=== PATIENT | male | born 1965 | race Caucasian/White ===

== ENCOUNTER 2022-01-13 14:02 | Inpatient (IN) | payer BC, OTHER ==
[2022-01-13] MEDS ORDERED: ACETAMINOPHEN 325 MG TABLET (FP) PO PRN ×2 (14:59)
[2022-01-13] MEDS ORDERED: MAG HYDROX/AL HYDROX/SIMETH 30 ML UNIT-DOSE CUP PO PRN (14:59)
[2022-01-13] MEDS ORDERED: MAGNESIUM CITRATE 300 ML BOTTLE PO PRN (14:59)
[2022-01-13] MEDS ORDERED: IBUPROFEN 400 MG TABLET (FP) PO PRN (14:59)
[2022-01-13] MEDS ORDERED: MAGNESIUM HYDROX 2400MG/30ML ORAL SUSPENSION 30 ML CUP PO PRN (14:59)
[2022-01-13] MEDS ORDERED: LOPERAMIDE HCL 2 MG CAPSULE PO PRN (14:59)
[2022-01-13] MEDS ORDERED: ONDANSETRON *ODT* 4 MG TABLET SL PRN (14:59)
[2022-01-13] MEDS ORDERED: MENTHOL/PHENOL 1 EACH UD MM PRN (14:59)
[2022-01-13] MEDS ORDERED: BISMUTH SUBSALICYLATE 524 MG/30 ML PO PRN (14:59)
[2022-01-13] MEDS ORDERED: chlordiazePOXIDE HCL 25 MG CAPSULE PO PRN (14:59)
[2022-01-13] MEDS ORDERED: NICOTINE 10 MG CARTRIDGE (INHALER) IH PRN (14:59)
[2022-01-13 15:44] VITALS: BMI 30.9
[2022-01-13] MEDS ORDERED: LORazepam 2 MG/ML SDV VIAL IM STA (17:30)
[2022-01-13] MEDS ORDERED: TRIMETHOBENZAMIDE HCL 200MG/2ML INJ IM ONE ×2 (17:32→17:40)
[2022-01-13] MEDS: hydrOXYzine PAMOATE 25 MG CAPSULE (FP) PO SCH ×2 (19:54→22:37)
[2022-01-13] MEDS: chlordiazePOXIDE HCL 25 MG CAPSULE PO SCH ×2 (19:57→22:37)
[2022-01-13] MEDS: ATORVASTATIN CA 40 MG TABLET (FP) PO SCH (22:37)
[2022-01-13] MEDS: MELATONIN 5 MG TABLETS PO SCH (22:37)
[2022-01-13] MEDS: THIAMINE HCL 100 MG TABLET (FP) PO SCH (22:37)
[2022-01-14] MEDS: chlordiazePOXIDE HCL 25 MG CAPSULE PO SCH ×4 (05:38→22:28)
[2022-01-14] MEDS: hydrOXYzine PAMOATE 25 MG CAPSULE (FP) PO SCH ×5 (05:38→22:29)
[2022-01-14] MEDS: metFORMIN HCL 500 MG TABLET (FP) PO SCH (07:13)
[2022-01-14] MEDS: LISINOPRIL 20 MG TABLET PO SCH (10:56)
[2022-01-14] MEDS: METHOCARBAMOL 500 MG TABLET PO PRN (10:56)
[2022-01-14] MEDS: METOPROLOL TARTRATE 50 MG TABLET (FP) PO SCH (10:56)
[2022-01-14] MEDS: PRENATAL VITAMINS W/ FOLIC ACID TABLET (FP) PO SCH (10:58)
[2022-01-14 11:07] LABS: HEMATOCRIT 28.1 % (35.4-49); MCH 23.8 pg (25.7-33.7); MEAN CELL VOLUME 74.2 fl (80-96); MEAN PLT VOLUME 8.1 fl (7.5-11.1); PLATELET COUNT 46 10^3/uL (134-434); RBC 3.78 M/mm3 (4.00-5.60); RDW 21.7 % (11.9-15.9); WHITE BLOOD COUNT 2.7 K/mm3 (4.0-10.0)
[2022-01-14 11:38] LABS: ALBUMIN 3.3 g/dl (3.4-5.0); BILIRUBIN,TOTAL 1.2 mg/dL (0.2-1); BLOOD UREA NITROGEN 14.2 mg/dL (7-18); CALCIUM 8.6 mg/dL (8.5-10.1); CREATININE 0.6 mg/dL (0.55-1.3); TOT PROT 7.4 g/dl (6.4-8.2)
[2022-01-14] MEDS ORDERED: PNEUMOC 13-VAL CONJ-DIP CRM/PF 0.5 ML DISP.SYRIN IM ONE (12:00)
[2022-01-14] MEDS ORDERED: FLU VACC QS2021-22(6MOS UP)/PF 60 MCG/0.5 ML SYRINGE IM ONE (12:00)
[2022-01-14] MEDS ORDERED: PNEUMOCOCCAL 23 VACCINE 0.5 ML VIAL IM ONE (12:00)
[2022-01-14] MEDS: THIAMINE HCL 100 MG TABLET (FP) PO SCH (22:28)
[2022-01-14] MEDS: ATORVASTATIN CA 40 MG TABLET (FP) PO SCH (22:28)
[2022-01-14] MEDS: MELATONIN 5 MG TABLETS PO SCH (22:29)
[2022-01-15] MEDS: hydrOXYzine PAMOATE 25 MG CAPSULE (FP) PO SCH ×5 (05:07→22:17)
[2022-01-15] MEDS: chlordiazePOXIDE HCL 25 MG CAPSULE PO SCH ×4 (05:08→22:16)
[2022-01-15] MEDS: metFORMIN HCL 500 MG TABLET (FP) PO SCH (06:49)
[2022-01-15 07:07] LABS: SARS-CoV-2 NAA Not Detected (Not Detected)
[2022-01-15 10:55] LABS: HEMATOCRIT 27.7 % (35.4-49); HEMOGLOBIN 8.9 GM/dL (11.7-16.9); MCHC 32.1 g/dl (32.0-35.9); MEAN CELL VOLUME 74.9 fl (80-96); MEAN PLT VOLUME 7.9 fl (7.5-11.1); PLATELET COUNT 40 10^3/uL (134-434); RDW 22.2 % (11.9-15.9); RETICULOCYTES 2.76 % (0.5-1.5); WHITE BLOOD COUNT 2.7 K/mm3 (4.0-10.0)
[2022-01-15] MEDS: PRENATAL VITAMINS W/ FOLIC ACID TABLET (FP) PO SCH (10:56)
[2022-01-15] MEDS: LISINOPRIL 20 MG TABLET PO SCH (10:56)
[2022-01-15] MEDS: METOPROLOL TARTRATE 50 MG TABLET (FP) PO SCH (10:56)
[2022-01-15 11:25] LABS: ALBUMIN 3.1 g/dl (3.4-5.0); CALCIUM 8.7 mg/dL (8.5-10.1)
[2022-01-15 11:28] LABS: CREATININE 0.8 mg/dL (0.55-1.3)
[2022-01-15 11:29] LABS: TOT PROT 7.2 g/dl (6.4-8.2)
[2022-01-15] MEDS: FERROUS SO4 325 MG TABLET (FP) PO SCH ×2 (13:22→16:51)
[2022-01-15] MEDS: FLUTICASONE PROP 0.05% 16 GM NASAL SPRAY NS SCH ×2 (15:35→22:17)
[2022-01-15] MEDS ORDERED: BENZOCAINE 28 GM HEMORRHOIDAL OINTMENT PR PRN (19:12)
[2022-01-15] MEDS: ATORVASTATIN CA 40 MG TABLET (FP) PO SCH (22:16)
[2022-01-15] MEDS: THIAMINE HCL 100 MG TABLET (FP) PO SCH (22:16)
[2022-01-15] MEDS: MELATONIN 5 MG TABLETS PO SCH (22:17)
[2022-01-16] MEDS ORDERED: chlordiazePOXIDE HCL 10 MG CAPSULE PO PRN
[2022-01-16] MEDS: chlordiazePOXIDE HCL 10 MG CAPSULE PO SCH ×4 (05:26→23:02)
[2022-01-16] MEDS: hydrOXYzine PAMOATE 25 MG CAPSULE (FP) PO SCH ×5 (05:27→23:02)
[2022-01-16] MEDS: metFORMIN HCL 500 MG TABLET (FP) PO SCH (08:22)
[2022-01-16] MEDS: FERROUS SO4 325 MG TABLET (FP) PO SCH ×3 (08:23→19:05)
[2022-01-16] MEDS: FLUTICASONE PROP 0.05% 16 GM NASAL SPRAY NS SCH ×2 (10:13→23:03)
[2022-01-16] MEDS: LISINOPRIL 20 MG TABLET PO SCH (10:14)
[2022-01-16] MEDS: METHOCARBAMOL 500 MG TABLET PO PRN (10:14)
[2022-01-16] MEDS: METOPROLOL TARTRATE 50 MG TABLET (FP) PO SCH (10:14)
[2022-01-16] MEDS: PRENATAL VITAMINS W/ FOLIC ACID TABLET (FP) PO SCH (10:16)
[2022-01-16 12:17] LABS: BASO % 0.4 % (0-2.0); EOS % 7.9 % (0-4.5); HEMATOCRIT 30.7 % (35.4-49); HEMOGLOBIN 9.9 GM/dL (11.7-16.9); LYMPH % 36.2 % (8-40); MCH 24.2 pg (25.7-33.7); MCHC 32.2 g/dl (32.0-35.9); MEAN PLT VOLUME 8.3 fl (7.5-11.1); MONO % 6.8 % (3.8-10.2); NEUT % 48.7 % (42.8-82.8); PLATELET COUNT 47 10^3/uL (134-434); RBC 4.09 M/mm3 (4.00-5.60); WHITE BLOOD COUNT 3.8 K/mm3 (4.0-10.0)
[2022-01-16 14:28] LABS: ANISOCYTOSIS 2+; MACROCYTOSIS 0; OVALOCYTE 2+; SICKELED CELLS 2+; TARGET CELLS 2+; TEAR DROP CELLS 1+
[2022-01-16] MEDS: MELATONIN 5 MG TABLETS PO SCH (23:01)
[2022-01-16] MEDS: THIAMINE HCL 100 MG TABLET (FP) PO SCH (23:02)
[2022-01-16] MEDS: ATORVASTATIN CA 40 MG TABLET (FP) PO SCH (23:02)
[2022-01-17] MEDS: hydrOXYzine PAMOATE 25 MG CAPSULE (FP) PO SCH ×5 (05:18→22:33)
[2022-01-17] MEDS: chlordiazePOXIDE HCL 10 MG CAPSULE PO SCH ×2 (05:18→17:29)
[2022-01-17] MEDS: metFORMIN HCL 500 MG TABLET (FP) PO SCH (06:17)
[2022-01-17] MEDS: FERROUS SO4 325 MG TABLET (FP) PO SCH ×3 (07:14→17:29)
[2022-01-17] MEDS: PRENATAL VITAMINS W/ FOLIC ACID TABLET (FP) PO SCH (10:23)
[2022-01-17] MEDS: FLUTICASONE PROP 0.05% 16 GM NASAL SPRAY NS SCH ×2 (10:23→22:33)
[2022-01-17] MEDS: LISINOPRIL 20 MG TABLET PO SCH (10:23)
[2022-01-17] MEDS: METOPROLOL TARTRATE 50 MG TABLET (FP) PO SCH (10:23)
[2022-01-17 13:30] LABS: HIV INTERPRETATION NEGATIVE (NEGATIVE)
[2022-01-17] MEDS ORDERED: POTASSIUM CHLORIDE ORAL LIQUID 20 MEQ/15 ML PO ONE ×2 (14:31→22:00)
[2022-01-17] MEDS: MELATONIN 5 MG TABLETS PO SCH (22:33)
[2022-01-17] MEDS: THIAMINE HCL 100 MG TABLET (FP) PO SCH (22:33)
[2022-01-17] MEDS: ATORVASTATIN CA 40 MG TABLET (FP) PO SCH (22:33)
[2022-01-18] MEDS ORDERED: chlordiazePOXIDE HCL 10 MG CAPSULE PO ONE (05:00)
[2022-01-18] MEDS: hydrOXYzine PAMOATE 25 MG CAPSULE (FP) PO SCH ×5 (05:23→22:22)
[2022-01-18] MEDS: metFORMIN HCL 500 MG TABLET (FP) PO SCH (06:57)
[2022-01-18] MEDS: FERROUS SO4 325 MG TABLET (FP) PO SCH ×3 (07:18→16:50)
[2022-01-18] MEDS: LISINOPRIL 20 MG TABLET PO SCH (10:06)
[2022-01-18] MEDS: METOPROLOL TARTRATE 50 MG TABLET (FP) PO SCH (10:06)
[2022-01-18] MEDS: PRENATAL VITAMINS W/ FOLIC ACID TABLET (FP) PO SCH (10:06)
[2022-01-18] MEDS: FLUTICASONE PROP 0.05% 16 GM NASAL SPRAY NS SCH ×2 (10:07→22:22)
[2022-01-18] MEDS: ATORVASTATIN CA 40 MG TABLET (FP) PO SCH (22:22)
[2022-01-18] MEDS: THIAMINE HCL 100 MG TABLET (FP) PO SCH (22:22)
[2022-01-18] MEDS: MELATONIN 5 MG TABLETS PO SCH (22:23)
[2022-01-19] MEDS: hydrOXYzine PAMOATE 25 MG CAPSULE (FP) PO SCH ×2 (05:30→09:13)
[2022-01-19] MEDS ORDERED: INSULIN SLIDING SCALE (NOVOLOG) 1 VIAL SQ SCH (07:00)
[2022-01-19 07:08] VITALS: BP 115/74
[2022-01-19] MEDS: metFORMIN HCL 500 MG TABLET (FP) PO SCH (07:28)
[2022-01-19] MEDS: FERROUS SO4 325 MG TABLET (FP) PO SCH (07:28)
[2022-01-19] MEDS: FLUTICASONE PROP 0.05% 16 GM NASAL SPRAY NS SCH (09:13)
[2022-01-19] MEDS: LISINOPRIL 20 MG TABLET PO SCH (09:13)
[2022-01-19] MEDS: PRENATAL VITAMINS W/ FOLIC ACID TABLET (FP) PO SCH (09:13)
[2022-01-19] MEDS: METOPROLOL TARTRATE 50 MG TABLET (FP) PO SCH (09:13)
[2022-01-19 09:53] VITALS: PULSE 85; TEMP 97.3
[2022-01-19 13:38] LABS: ALBUMIN 3.4 g/dl (3.4-5.0); CALCIUM 8.9 mg/dL (8.5-10.1)
[2022-01-19 13:39] LABS: BLOOD UREA NITROGEN 13.2 mg/dL (7-18)
[2022-01-19 13:41] LABS: CREATININE 0.8 mg/dL (0.55-1.3)
[2022-01-19 13:43] LABS: BILIRUBIN,TOTAL 0.6 mg/dL (0.2-1); TOT PROT 7.9 g/dl (6.4-8.2)
== END 2022-01-19 10:13 | disposition other institution (70) | DRG 897 ==
LOC: YASAS 14:02 → Y6N 18:44
PROVIDERS: ADMIT Allergy & Immunology; ATTEND Allergy & Immunology
PROC: HZ2ZZZZ Detoxification Services for Substance Abuse Treatment (ICD-10-PCS; principal; 2022-01-13)
DX: F10.230 Alcohol dependence with withdrawal, uncomplicated (principal); D61.818 Other pancytopenia; F10.282 Alcohol dependence with alcohol-induced sleep disorder; F10.24 Alcohol dependence with alcohol-induced mood disorder; D50.9 Iron deficiency anemia, unspecified; E87.6 Hypokalemia; E11.9 Type 2 diabetes mellitus without complications; Z79.84 Long term (current) use of oral hypoglycemic drugs; I10 Essential (primary) hypertension; E78.5 Hyperlipidemia, unspecified; K21.9 Gastro-esophageal reflux disease without esophagitis; R74.01 Elevation of levels of liver transaminase levels; R74.8 Abnormal levels of other serum enzymes; R76.11 Nonspecific reaction to tuberculin skin test without active tuberculosis; I25.2 Old myocardial infarction
CPT/HCPCS: 36415; 71046-TC-FY; 80053; 82607; 82746; 82962; 83036; 83540; 83550; 85025; 85027; 85045; 86780; 87389; 93005; 93010; C9803-CS; Q0162; U0003; U0005

== ENCOUNTER 2025-03-12 21:42 | Inpatient (IN) | payer BC, OTHER ==
[2025-03-12 22:10] VITALS: BMI 31.6
[2025-03-12] MEDS ORDERED: guaiFENesin 600 MG TABLET.ER (FP) PO PRN (22:24)
[2025-03-12] MEDS ORDERED: LOPERAMIDE HCL 2 MG CAPSULE PO PRN (22:24)
[2025-03-12] MEDS ORDERED: IBUPROFEN 600 MG TABLET (FP) PO PRN (22:24)
[2025-03-12] MEDS ORDERED: BISMUTH SUBSALICYLATE 524 MG/30 ML PO PRN (22:24)
[2025-03-12] MEDS ORDERED: NALOXONE (NARCAN) HCL 4 MG/0.1 ML SPRAY NS PRN (22:24)
[2025-03-12] MEDS ORDERED: MAG HYDROX/AL HYDROX/SIMETH 30 ML UNIT-DOSE CUP PO PRN (22:24)
[2025-03-12] MEDS ORDERED: DICYCLOMINE HCL 10 MG CAPSULE PO PRN (22:24)
[2025-03-12] MEDS ORDERED: BENZOCAINE/MENTHOL (CHLORASEPTIC ) LOZENGE MM PRN (22:24)
[2025-03-12] MEDS ORDERED: POLYETHYLENE GLYCOL (HEALTHYLAX) 3350 17 GM PACKET PO PRN (22:24)
[2025-03-12] MEDS ORDERED: MAGNESIUM HYDROX 2400MG/30ML ORAL SUSPENSION 30 ML CUP PO PRN (22:24)
[2025-03-12] MEDS ORDERED: ONDANSETRON *ODT* 4 MG TABLET SL PRN (22:24)
[2025-03-12] MEDS ORDERED: ACETAMINOPHEN 325 MG TABLET (FP) PO PRN (22:24)
[2025-03-12] MEDS ORDERED: IBUPROFEN 400 MG TABLET (FP) PO PRN (22:24)
[2025-03-12] MEDS ORDERED: BENZONATATE 200 MG CAPSULE PO PRN (22:24)
[2025-03-12] MEDS ORDERED: chlordiazePOXIDE HCL 25 MG CAPSULE PO PRN (22:26)
[2025-03-12] MEDS ORDERED: levETIRAcetam 500 MG TABLET (FP) PO ONE (23:33)
[2025-03-12] MEDS ORDERED: propRANOLol HCL 10 MG TABLET ONE (23:33)
[2025-03-12] MEDS ORDERED: chlordiazePOXIDE HCL 25 MG CAPSULE ONE (23:33)
[2025-03-12] MEDS: propRANOLol HCL 10 MG TABLET PO ONE (23:42)
[2025-03-12] MEDS: levETIRAcetam 500 MG TABLET (FP) PO SCH (23:42)
[2025-03-12] MEDS: chlordiazePOXIDE HCL 25 MG CAPSULE PO SCH (23:43)
[2025-03-13] MEDS: PRENATAL VITAMINS W/ FOLIC ACID TABLET (FP) PO SCH (10:14)
[2025-03-13] MEDS: FLU VACCINE (FLULAVAL) PF 45 MCG/0.5 ML SYRINGE 2024-2025 IM ONE (12:55)
[2025-03-13 15:03] LABS: HEMATOCRIT 26.2 % (40.1-51.0)
[2025-03-13 15:05] LABS: HEMOGLOBIN 7.9 g/dL (13.7-17.5); MCHC 30.2 g/dl (32.3-36.5); MEAN CELL VOLUME 83.4 fl (79.0-92.2); MEAN PLT VOLUME 9.8 fl (9.4-12.4); RDW 20.5 % (12.2-16.1)
[2025-03-13 15:14] LABS: POTASSIUM 3.8 mmol/L (3.5-5.1)
[2025-03-13 15:20] LABS: PLATELET COUNT 23 x10^3/uL (163-337)
[2025-03-13 15:41] LABS: CALCIUM 8.2 mg/dL (8.5-10.1)
[2025-03-13 15:43] LABS: ALBUMIN 2.4 g/dl (3.4-5.0); BLOOD UREA NITROGEN 9.4 mg/dL (7-18)
[2025-03-13 15:45] LABS: CREATININE 0.9 mg/dL (0.55-1.3)
[2025-03-13 15:47] LABS: BILIRUBIN,TOTAL 1.4 mg/dL (0.2-1); TOT PROT 7.5 g/dl (6.4-8.2)
[2025-03-13] MEDS: MELATONIN 5 MG TABLETS PO SCH (22:07)
[2025-03-13] MEDS: THIAMINE 100 MG TABLET PO SCH (22:07)
[2025-03-14] MEDS: chlordiazePOXIDE HCL 25 MG CAPSULE PO SCH (05:55)
[2025-03-14 11:28] LABS: HEMATOCRIT 27.5 % (40.1-51.0); HEMOGLOBIN 8.5 g/dL (13.7-17.5); MCHC 30.9 g/dl (32.3-36.5); MEAN CELL VOLUME 83.3 fl (79.0-92.2); MEAN PLT VOLUME 8.9 fl (9.4-12.4); PLATELET COUNT 29 x10^3/uL (163-337)
[2025-03-15] MEDS ORDERED: chlordiazePOXIDE HCL 10 MG CAPSULE PO PRN
[2025-03-15] MEDS: chlordiazePOXIDE HCL 10 MG CAPSULE PO SCH (05:46)
[2025-03-16] MEDS: METHOCARBAMOL 500 MG TABLET PO PRN (02:37)
[2025-03-16] MEDS: chlordiazePOXIDE HCL 10 MG CAPSULE PO SCH (05:37)
[2025-03-16 06:16] VITALS: RESP 16
[2025-03-17] MEDS: chlordiazePOXIDE HCL 10 MG CAPSULE PO ONE (05:45)
[2025-03-17 09:04] VITALS: BP 119/80; PULSE 91; TEMP 98
== END 2025-03-17 11:15 | disposition home or self-care (01) | DRG 775 ==
LOC: YASAS 21:42 → Y3N 23:31
PROVIDERS: ADMIT Allergy & Immunology; ATTEND Allergy & Immunology
PROC: HZ2ZZZZ Detoxification Services for Substance Abuse Treatment (ICD-10-PCS; principal; 2025-03-12)
DX: F10.230 Alcohol dependence with withdrawal, uncomplicated (principal); D69.6 Thrombocytopenia, unspecified; E78.00 Pure hypercholesterolemia, unspecified; I25.10 Atherosclerotic heart disease of native coronary artery without angina pectoris; I10 Essential (primary) hypertension; E11.59 Type 2 diabetes mellitus with other circulatory complications
CPT/HCPCS: 36415; 80053; 80305; 80307; 82962; 85027; 86780; 93005; 93010

== ENCOUNTER 2025-03-13 09:06 | Emergency (ER) | payer OTHER ==
[2025-03-13 09:25] VITALS: RESP 22; BMI 27.9
[2025-03-13] MEDS ORDERED: ONDANSETRON 4 MG/2 ML VIAL ONE (09:55)
[2025-03-13] MEDS ORDERED: FAMOTIDINE 20 MG/50 ML IVPB 20 MG/50 ML MG IVPB ONE (09:55)
[2025-03-13] MEDS ORDERED: ACETAMINOPHEN 325 MG TABLET (FP) ONE (09:55)
[2025-03-13] MEDS: FAMOTIDINE 20 MG/50 ML IVPB 20 MG/50 ML MG IVPB ONE (10:04)
[2025-03-13] MEDS: ACETAMINOPHEN 325 MG TABLET (FP) PO ONE (10:04)
[2025-03-13] MEDS: ONDANSETRON 4 MG/2 ML VIAL IVPUSH ONE (10:04)
[2025-03-13 10:05] LABS: BASOPHILS # 0.01 x10^3/uL (0.01-0.08)
[2025-03-13 10:07] LABS: EOSINOPHIL % 5.6 % (0.8-7.0); EOSINOPHILS # 0.14 x10^3/uL (0.04-0.54); HEMATOCRIT 26.2 % (40.1-51.0); MCHC 30.5 g/dl (32.3-36.5); MEAN CELL VOLUME 83.2 fl (79.0-92.2); MONOCYTE # 0.18 x10^3/uL (0.30-0.82); MONOCYTE % 7.1 % (5.3-12.2); PLATELET COUNT 32 x10^3/uL (163-337); RDW 20.3 % (12.2-16.1)
[2025-03-13 10:27] LABS: POTASSIUM 3.9 mmol/L (3.5-5.1)
[2025-03-13 10:30] LABS: BLOOD UREA NITROGEN 10.3 mg/dL (7-18); CALCIUM 8.5 mg/dL (8.5-10.1)
[2025-03-13 10:31] LABS: ALBUMIN 2.4 g/dl (3.4-5.0); MAGNESIUM 1.7 mg/dL (1.8-2.4)
[2025-03-13 10:34] LABS: BILIRUBIN,TOTAL 1.4 mg/dL (0.2-1); CREATININE 0.9 mg/dL (0.55-1.3); TOT PROT 7.7 g/dl (6.4-8.2)
[2025-03-13] MEDS ORDERED: MAGNESIUM SULFATE IN WATER 2 GM/50 ML IVPB IVPB ONE (11:01)
[2025-03-13] MEDS: MAGNESIUM SULFATE IN WATER 2 GM/50 ML IVPB IVPB ONE (11:06)
[2025-03-13 12:28] VITALS: BP 112/70; PULSE 83; TEMP 98.7
[2025-03-13 12:39] LABS: EPI CELLS 6 /uL (0-25.1); HYALINE CASTS 2 /uL (0-3.1); URINE APPEARANCE CLEAR; URINE BILIRUBIN 1+ (NEGATIVE); URINE COLOR ORANGE; URINE GLUCOSE (UA) NEGATIVE (NEGATIVE); URINE KETONE 1+ (NEGATIVE); URINE LEUK ESTERASE NEGATIVE (NEGATIVE); URINE NITRITE POSITIVE (NEGATIVE); URINE PROTEIN 1+ (NEGATIVE); URINE WBC 7 /uL (0-25.8)
[2025-03-13 14:01] LABS: URINE BACTERIA 7 /uL (0-1359); URINE RBC 63 /uL (0-23.9)
== END 2025-03-13 12:57 | disposition home or self-care (01) ==
LOC: JER 09:06
PROC: 3E033GC Introduction of Other Therapeutic Substance into Peripheral Vein, Percutaneous Approach (ICD-10-PCS; principal; 2025-03-13)
PROC: 3E033GC Introduction of Other Therapeutic Substance into Peripheral Vein, Percutaneous Approach (ICD-10-PCS; 2025-03-13)
PROC: 3E033GC Introduction of Other Therapeutic Substance into Peripheral Vein, Percutaneous Approach (ICD-10-PCS; 2025-03-13)
DX: F10.230 Alcohol dependence with withdrawal, uncomplicated (principal); R10.13 Epigastric pain; R07.89 Other chest pain; R30.9 Painful micturition, unspecified; R68.83 Chills (without fever); K92.0 Hematemesis
CPT/HCPCS: 0241U-QW; 36415; 71045-TC-FY; 71046-TC-FY; 80053; 81003; 82550; 82553; 83690; 83735; 84484; 85025; 87086; 93005; 93010; 99285-25